=== PATIENT | male | born 1970 | race Two or more races ===

== ENCOUNTER 2019-11-19 12:20 | Emergency (ER) | payer SELFPAY ==
[~2019-11-19] VITALS: Ht 162.6 cm; Wt 84.4 kg
[2019-11-19 12:25] VITALS: BP 140/95
[2019-11-19] MEDS ORDERED: KETOROLAC TROMETH 60MG/2ML VIAL IM ONE (15:00)
== END 2019-11-19 15:18 | disposition home or self-care (01) ==
LOC: ER 12:29
DX: S46.912A Strain of unspecified muscle, fascia and tendon at shoulder and upper arm level, left arm, initial encounter (principal); X50.1XXA Overexertion from prolonged static or awkward postures, initial encounter; Y93.89 Activity, other specified; Y99.8 Other external cause status; Y92.89 Other specified places as the place of occurrence of the external cause
CPT/HCPCS: 73030; 96372; 99283; J1885

== ENCOUNTER 2020-03-29 19:33 | Emergency (ER) | payer OTHER ==
[~2020-03-29] VITALS: Ht 162.6 cm; Wt 83.9 kg
[2020-03-29 19:58] VITALS: BP 167/101
[2020-03-29] MEDS ORDERED: ACETAMINOPHEN 325 MG TAB PO ONE (22:15)
[2020-03-29] MEDS ORDERED: KETOROLAC TROMETH 60MG/2ML VIAL IM ONE (22:15)
[2020-03-29] MEDS ORDERED: IBUPROFEN 800 MG TAB PO ONE (22:30)
== END 2020-03-29 23:10 | disposition home or self-care (01) ==
LOC: ER 19:33
DX: S46.912A Strain of unspecified muscle, fascia and tendon at shoulder and upper arm level, left arm, initial encounter (principal); S43.422A Sprain of left rotator cuff capsule, initial encounter; M77.9 Enthesopathy, unspecified; X58.XXXA Exposure to other specified factors, initial encounter; Y93.89 Activity, other specified; Y92.89 Other specified places as the place of occurrence of the external cause; Y99.8 Other external cause status
CPT/HCPCS: 73030